=== PATIENT | female | born 1975 | race Caucasian/White ===

== ENCOUNTER 2017-10-25 18:13 | Inpatient (IN) | payer OTHER ==
[2017-10-25 18:47] VITALS: BMI 24.1
--- NOTE | 2017-10-25 20:09 | HP ---
CIWA Score - CIWA Score Nausea/Vomitin Muscle Tremors: 2 Anxiety: 3 Agitation: 3 Paroxysmal Sweats: 2 Orientation: 0-Oriented Tacttile Disturbances: 1-Very Mild Itch/Numbness Auditory Disturbances: 0-None Visual Disturbances: 0-None Headache: 0-None Present CIWA-Ar Total Score: 13 Admission [facility] [place] Chief Complaint: alcohol withdrawal symptoms Allergies/Adverse Reactions: Allergies Allergy/AdvReac Type Severity Reaction Status Date / Time naproxen [From Naprosyn] Allergy Mild Nausea Verified 10/25/17 19:24 History of Present Illness: 42 yo female with hx of nicotine, crack / cocaine, and alcohol dependence is here seeking detox, reports this is her first admission to detox. PMHX: asthma, COPD, Depression, bipolar and anxiety. Denies suicidal / homicidal ideation. Reports hx of suicide attempt 2009, with drug over dose (Buspar). Longest period of sobriety 2 years. Denies hx of seizures, reports remote hx of blackouts with last episode 8 months ago. Exam Limitations: No Limitations - Ebola screening Have you been sick,other than usual withdrawal symptoms: No - Review of Systems Constitutional: Chills, Night Sweats, Changes in sleep EENT: reports: No Symptoms Reported Respiratory: reports: Cough (seen ED for asthma), SOB with Exertion Cardiac: reports: Other (chets pain for prolong coughing was seen in the ED yesterday) GI: reports: Constipated (last BM this AM), Nausea, Poor Appetite, Poor Fluid Intake, Indigestion : reports: No Symptoms Reported Musculoskeletal: reports: Back Pain, Other (hx of back sx) Integumentary: reports: No Symptoms Reported Neuro: reports: No Symptoms reported Endocrine: reports: Increased Thirst Hematology: reports: No Symptoms Reported Psychiatric: reports: Orientated x3, Anxious Other Systems: Reviewed and Negative Patient History - Patient Medical History Hx Anemia: No Hx Asthma: Yes Hx Chronic Obstructive Pulmonary Disease (COPD): Yes Hx Cancer: No Hx Cardiac Disorders: No Hx Congestive Heart Failure: No Hx Hypertension: No Hx Hypercholesterolemia: No Hx Pacemaker: No HX Cerebrovascular Accident: No Hx Seizures: No Hx Dementia: No Hx Diabetes: No Hx Gastrointestinal Disorders: No Hx Liver Disease: No Hx Genitourinary Disorders: No Hx Sexually Transmitted Disorders: No Hx Renal Disease (ESRD): No Hx Thyroid Disease: No Hx Human Immunodeficiency Virus (HIV): No Hx Hepatitis C: No Hx Depression: Yes (non-compliant) Hx Suicide Attempt: Yes (2009, with drug over dose (Buspar)) Hx Bipolar Disorder: No Hx Schizophrenia: No - Patient Surgical History Past Surgical History: Yes Hx Appendectomy: Yes Hx Orthopedic Surgery: Yes Other Surgical History: Laminectomy L4-L5, Partial hysterectomy,Tonsillectomy Anesthesia Reaction: No - PPD History Previous Implant?: Yes Documented Results: Negative w/o proof PPD to be Administered?: No - Reproductive History Patient is a Female of Child Bearing Age (11 -55 yrs old): No - Smoking Cessation Smoking history: Current every day smoker Aproximately how many cigarettes per day: 10 Hx Chewing Tobacco Use: No Initiated information on smoking cessation: Yes 'Breaking Loose' booklet given: 10/25/17 - Substance & Tx. History Hx Alcohol Use: Yes Hx Substance Use: Yes Substance Use Type: Alcohol, Cocaine Hx Substance Use Treatment: No - Substances Abused Alcohol Route: Oral Frequency: Daily Amount used: Beer - (6) 24 oz, Rum - 1 pint Age of first use: 15 Date of Last Use: 10/25/17 Cocaine Route: Smoking Frequency: Daily Amount used: $500.00 Age of first use: 20 Date of Last Use: 10/25/17 Family Disease History - Family Disease History Family Disease History: CA: Father (, colon CA ), Mother (, CA, COPD ), Respiratory: Mother, Other: Father, Mother Admission Physical Exam BHS - Vital Signs Vital Signs: Vital Signs - 24 hr 10/25/17 18:44 Pulse Rate 73 Respiratory 18 Rate Blood Pressure 110/65 - Physical General Appearance: Yes: Disheveled, Thin, Sweating, Anxious HEENTM: Yes: EOMI, Hearing grossly Normal, Normal ENT Inspection, Normocephalic , Normal Voice, RICHA, Pharynx Normal, Tm's normal Respiratory: Yes: Chest Non-Tender, Lungs Clear, No Respiratory Distress, No Accessory Muscle Use, Wheezing Neck: Yes: Within Normal Limits Breast: Yes: Breast Exam Deferred Cardiology: Yes: Regular Rhythm, Regular Rate Abdominal: Yes: Normal Bowel Sounds, Non Tender, Flat, Soft Genitourinary: Yes: Within Normal Limits Back: Yes: Normal Inspection Musculoskeletal: Yes: full range of Motion, Gait Steady, Pelvis Stable Extremities: Yes: Normal Capillary Refill, Normal Inspection, Normal Range of Motion, Non-Tender Neurological: Yes: prize fighter II-XII NML intact, Fully Oriented, Alert, Motor Strength 5/5, Depressed Affect Integumentary: Yes: Normal Color, Warm, Moist Lymphatic: Yes: Within Normal Limits - Diagnostic (1) COPD (chronic obstructive pulmonary disease) Current Visit: Yes Status: Chronic Qualifiers: COPD type: unspecified COPD Qualified Code(s): J44.9 - Chronic obstructive pulmonary disease, unspecified (2) Wheezing Current Visit: Yes Status: Acute (3) Cocaine dependence Current Visit: Yes Status: Acute Qualifiers: Substance use status: uncomplicated Qualified Code(s): F14.20 - Cocaine dependence, uncomplicated (4) Cough Current Visit: Yes Status: Acute (5) Alcohol dependence with withdrawal Current Visit: Yes Status: Acute Cleared for Admission [facility] - Detox or Rehab [facility] Level of Care: Medically Managed Detox Regimen/Protocol: Librium S Breath Alcohol Content Breath Alcohol Content: 0 Urine Pregancy Test - Result Urine Test Results: Negative- NO Line Present Urine Drug Screen - Results Drug Screen Negative: No Urine Drug Screen Results: GALINA-Cocaine, TCA-Tricyclic Antidepress
[2017-10-25] MEDS ORDERED: LOPERAMIDE HCL 2 MG CAPSULE PO PRN (20:32)
[2017-10-25] MEDS ORDERED: MAG HYDROX/AL HYDROX/SIMETH 30 ML UNIT-DOSE CUP PO PRN (20:32)
[2017-10-25] MEDS ORDERED: MAGNESIUM CITRATE 300 ML BOTTLE PO PRN (20:32)
[2017-10-25] MEDS ORDERED: MAGNESIUM HYDROX 2400MG/30ML ORAL SUSPENSION 30 ML CUP PO PRN (20:32)
[2017-10-25] MEDS ORDERED: P-EPHED 60MG/TRIPROLIDI 2.5MG TABLET PO PRN (20:32)
[2017-10-25] MEDS ORDERED: chlordiazePOXIDE HCL 25 MG CAPSULE PO ONE (20:32)
[2017-10-25] MEDS ORDERED: ACETAMINOPHEN 325 MG TABLET (FP) PO PRN (20:32)
[2017-10-25] MEDS ORDERED: guaiFENesin/D-METHORPHAN HB 10 ML UNIT-DOSE CUPS PO PRN (20:32)
[2017-10-25] MEDS ORDERED: MENTHOL/PHENOL 1 EACH UD MM PRN (20:32)
[2017-10-25] MEDS ORDERED: chlordiazePOXIDE HCL 25 MG CAPSULE PO PRN (20:32)
[2017-10-25] MEDS: MONTELUKAST NA 10 MG TABLET PO SCH (22:22)
[2017-10-25] MEDS: ALBUTEROL SO4 2.5/IPRATROPIUM 0.5 INH SOL 3 ML VIAL.NEB. NEB PRN (22:22)
[2017-10-25] MEDS: MELATONIN 5 MG TABLETS PO PRN (22:23)
[2017-10-25] MEDS: guaiFENesin/D-METHORPHAN HB 1 EACH TAB.ER.12H PO SCH (22:23)
[2017-10-25] MEDS: THIAMINE HCL 100 MG TABLET (FP) PO SCH (22:23)
[2017-10-25] MEDS: chlordiazePOXIDE HCL 25 MG CAPSULE PO SCH (22:23)
[2017-10-25] MEDS: BACITRACIN 0.9 GM PACKET TP SCH (23:19)
[2017-10-26] MEDS: chlordiazePOXIDE HCL 25 MG CAPSULE PO SCH ×4 (05:37→22:27)
[2017-10-26] MEDS: ALBUTEROL SO4 2.5/IPRATROPIUM 0.5 INH SOL 3 ML VIAL.NEB. NEB PRN (08:27)
[2017-10-26 09:58] LABS: HEMATOCRIT 34.7 % (32.4-45.2); HEMOGLOBIN 11.6 GM/dL (10.7-15.3); MCH 30.3 pg (25.7-33.7); MCHC 33.3 g/dl (32.0-36.0); MEAN CELL VOLUME 90.8 fl (80-96); MEAN PLT VOLUME 10.5 fl (7.5-11.1); PLATELET COUNT 180 K/MM3 (134-434); RBC 3.82 M/mm3 (3.60-5.2); RDW 13.2 % (11.6-15.6); WHITE BLOOD COUNT 13.4 K/mm3 (4.0-10.0)
--- NOTE | 2017-10-26 10:40 | PN ---
S CIWA - CIWA Score Nausea/Vomitin-Mild Nausea/No Vomiting Muscle Tremors: 4-Moderate,w/Arms Extend Anxiety: 3 Agitation: 3 Paroxysmal Sweats: 1-Minimal Palms Moist Orientation: 0-Oriented Tacttile Disturbances: 0-None Auditory Disturbances: 0-None Visual Disturbances: 0-None Headache: 0-None Present CIWA-Ar Total Score: 12 BHS Progress Note (SOAP) Subjective: sweat tremor restlessness anxiety Objective: 10/26/17 10:39 Vital Signs Temperature 96.8 F L 10/26/17 09:21 Pulse Rate 78 10/26/17 09:21 Respiratory Rate 18 10/26/17 09:21 Blood Pressure 108/53 10/26/17 09:21 O2 Sat by Pulse Oximetry (%) Laboratory Last Values WBC 13.4 K/mm3 (4.0-10.0) H 10/26/17 07:00 RBC 3.82 M/mm3 (3.60-5.2) 10/26/17 07:00 Hgb 11.6 GM/dL (10.7-15.3) 10/26/17 07:00 Hct 34.7 % (32.4-45.2) 10/26/17 07:00 MCV 90.8 fl (80-96) 10/26/17 07:00 MCH 30.3 pg (25.7-33.7) 10/26/17 07:00 MCHC 33.3 g/dl (32.0-36.0) 10/26/17 07:00 RDW 13.2 % (11.6-15.6) 10/26/17 07:00 Plt Count 180 K/MM3 (134-434) 10/26/17 07:00 MPV 10.5 fl (7.5-11.1) 10/26/17 07:00 lab noted Assessment: 10/26/17 10:39 withdrawal sx asthma copd Plan: continue detox amoxilline 250 mg tid
[2017-10-26] MEDS: PRENATAL VITAMINS W/ FOLIC ACID TABLET (FP) PO SCH (10:48)
[2017-10-26] MEDS: BACITRACIN 0.9 GM PACKET TP SCH (10:48)
[2017-10-26] MEDS: guaiFENesin/D-METHORPHAN HB 1 EACH TAB.ER.12H PO SCH ×2 (10:48→22:27)
[2017-10-26] MEDS: NICOTINE 21 MG/24 HOURS TOPICAL PATCH TD SCH (10:49)
--- NOTE | 2017-10-26 11:30 | EKG ---
Test Reason : Blood Pressure : / mmHG Vent. Rate : 071 BPM Atrial Rate : 071 BPM P-R Int : 148 ms QRS Dur : 082 ms QT Int : 404 ms P-R-T Axes : 069 069 058 degrees QTc Int : 439 ms NORMAL SINUS RHYTHM NORMAL ECG Confirmed by MD MADIE, YADIEL ([id number]) on 10/26/2017 11:29:36 AM Referred By: Confirmed By:YADIEL RAMACHANDRAN MD
[2017-10-26 12:01] LABS: CALCIUM 8.6 mg/dL (8.5-10.1); CHLORIDE 108 mmol/L (98-107); POTASSIUM 4.1 mmol/L (3.5-5.1); SODIUM 140 mmol/L (136-145)
[2017-10-26 12:05] LABS: ALBUMIN 3.1 g/dl (3.4-5.0); ALK PHOS 31 U/L (45-117); ANION GAP 6 (8-16); BILIRUBIN,TOTAL 0.2 mg/dL (0.2-1.0); BLOOD UREA NITROGEN 20 mg/dL (7-18); CO2 26 mmol/L (21-32); CREATININE 0.5 mg/dL (0.55-1.02); GLUCOSE,RANDOM 84 mg/dL (74-106); SGOT/AST 7 U/L (15-37); SGPT/ALT 17 U/L (12-78); TOT PROT 5.7 g/dl (6.4-8.2)
[2017-10-26] MEDS: AMOXICILLIN 250 MG CAPSULE PO SCH ×2 (13:45→22:27)
[2017-10-26] MEDS: BUDESONIDE/FORMETEROL FUMARATE 80/4.5 mcg INHALER IH SCH ×2 (15:02→22:26)
--- NOTE | 2017-10-26 17:28 | CONSULT ---
[facility] Psychiatric Consult - Data Date of interview: 10/26/17 Admission source: [facility] Identifying data: Patient is a 42 year old single female, mother of four, unemployed, homeless, and supported by food stamps. This is patient's first admission to detox at [facility]. Pt. admitted to for alcohol and crack/ cocaine. Substance Abuse History: Smoking Cessation. Smoking history: Current every day smoker. Aproximately how many cigarettes per day: 10. Hx Chewing Tobacco Use: No. Initiated information on smoking cessation: Yes. 'Breaking Loose' booklet given: 10/25/17. - Substance & Tx. History. Hx Alcohol Use: Yes. Hx Substance Use: Yes. Substance Use Type: Alcohol, Cocaine. Hx Substance Use Treatment: No. - Substances Abused. Alcohol. Route: Oral. Frequency: Daily. Amount used: Beer - (6) 24 oz, Rum - 1 pint. Age of first use: 15. Date of Last Use: 10/25/17. Cocaine. Route: Smoking. Frequency: Daily. Amount used: $500.00. Age of first use: 20. Date of Last Use: 10/25/17 Medical History: Asthma, Laminectomy L4-L5, Partial hysterectomy,Tonsillectomy Psychiatric History: Patient reports two psychiatric hospitalizations, most recently in 2005 at [facility] in [place]. Diagnosis of bipolar disorder. Pt. denies OPD. Patient reports h/o accepting trazodone, depakote,buspar, and risperdal but states the medications were ineffective. Pt. reports nonadherence to medications. Pt. reports one suicide attempt via overdose by taking buspar after mother in 2005. Pt. reports having anxiety that can be difficult to manage. Pt. currently denies suicidal and homicidal ideation. Physical/Sexual Abuse/Trauma History: Denies. Mental Status Exam - Mental Status Exam Alert and Oriented to: Time, Place, Person Cognitive Function: Good Patient Appearance: Well Groomed Mood: Euthymic Affect: Mood Congruent Patient Behavior: Appropriate, Cooperative Speech Pattern: Clear, Appropriate Thought Process: Intact, Goal Oriented Thought Disorder: Not Present Hallucinations: Denies Suicidal Ideation: Denies Homicidal Ideation: Denies Insight/Judgement: Poor Sleep: Fair Appetite: Fair Muscle strength/Tone: Normal Gait/Station: Normal Psychiatric Findings - Problem List (Horatio 1, 2,3) (1) Alcohol dependence with withdrawal Current Visit: Yes Status: Acute (2) Cocaine dependence Current Visit: Yes Status: Acute Qualifiers: Substance use status: uncomplicated Qualified Code(s): F14.20 - Cocaine dependence, uncomplicated (3) COPD (chronic obstructive pulmonary disease) Current Visit: Yes Status: Chronic Qualifiers: COPD type: unspecified COPD Qualified Code(s): J44.9 - Chronic obstructive pulmonary disease, unspecified (4) Substance-induced anxiety disorder Current Visit: Yes Status: Acute - Initial Treatment Plan Initial Treatment Plan: Psychoeducation provided. Detoxification in progress. Observation.
[2017-10-26] MEDS: MONTELUKAST NA 10 MG TABLET PO SCH (22:27)
[2017-10-26] MEDS: THIAMINE HCL 100 MG TABLET (FP) PO SCH (22:27)
[2017-10-27] MEDS: AMOXICILLIN 250 MG CAPSULE PO SCH ×2 (05:38→14:17)
[2017-10-27] MEDS: chlordiazePOXIDE HCL 25 MG CAPSULE PO SCH ×3 (05:38→17:28)
[2017-10-27] MEDS ORDERED: IBUPROFEN 400 MG TABLET (FP) PO PRN (07:21)
--- NOTE | 2017-10-27 07:21 | PN ---
[facility] Progress Note Note: SEEN FOR CHRONIC COUGH WITH C/O CHEST PAIN WHEN COUGHING. REPORTS COUGH DRY/ HACKING. CLIENT REPORTS SX'S HAVE BEEN PRESENT FOR OVER A MONTH. CXR DONE 2017 NEGATIVE FOR PATHOLOGY. CLIENT IS AN ASTHMATIC AND COPD. STATES WAS NOT TAKING APPROPRIATE INHALERS BUT THAT HAS SINCE BEEN ORDERED. Vital Signs - 24 hr 10/26/17 10/26/17 10/26/17 08:04 08:05 09:21 Temperature 97.7 F 96.8 F L Pulse Rate 67 78 Respiratory 18 16 18 Rate Blood Pressure 111/66 108/53 10/26/17 10/26/17 10/26/17 14:23 18:21 22:14 Temperature 97.7 F 98.2 F 98.1 F Pulse Rate 87 86 86 Respiratory 18 16 16 Rate Blood Pressure 101/41 108/48 115/63 10/27/17 10/27/17 00:30 03:30 Temperature Pulse Rate Respiratory 18 18 Rate Blood Pressure Laboratory Tests 10/26/17 10/26/17 10/26/17 07:00 07:00 07:00 WBC 13.4 H RBC 3.82 Hgb 11.6 Hct 34.7 MCV 90.8 MCH 30.3 MCHC 33.3 RDW 13.2 Plt Count 180 MPV 10.5 Sodium 140 Potassium 4.1 Chloride 108 H Carbon Dioxide 26 Anion Gap 6 L BUN 20 H Creatinine 0.5 L Creat Clearance w eGFR > 60 Random Glucose 84 Calcium 8.6 Total Bilirubin 0.2 AST 7 L ALT 17 Alkaline Phosphatase 31 L Total Protein 5.7 L Albumin 3.1 L RPR Titer Nonreactive HIV 1&2 Antibody Screen HIV P24 Antigen 10/26/17 08:30 WBC RBC Hgb Hct MCV MCH MCHC RDW Plt Count MPV Sodium Potassium Chloride Carbon Dioxide Anion Gap BUN Creatinine Creat Clearance w eGFR Random Glucose Calcium Total Bilirubin AST ALT Alkaline Phosphatase Total Protein Albumin RPR Titer HIV 1&2 Antibody Screen Negative HIV P24 Antigen Negative 0- LUNGS CTAB DECREASE BREATH SOUNDS AT BASES. NO WHEEZING, RONCHI,NOTED- O2 SAT 99% RA LABS NOTED WBC ELEVATED CLIENT IS ON AMOXICILLIN WILL CONT TO MONITOR IN LIGHT OF NEG CXR P C/W CURRENT MGMT ROBITUSSIN/ AND MOTRIN FOR PAIN AND COUGH D/W CLIENT ABOUT ALLERGY. STATES TAKES MOTRIN AT HOME W/O ANY ISSUES PITCHER OF WATER AT BEDSIDE FOR INCREASE PO HYDRATION
[2017-10-27] MEDS: guaiFENesin/D-METHORPHAN HB 10 ML UNIT-DOSE CUPS PO PRN (09:13)
--- NOTE | 2017-10-27 09:53 | PN ---
S CIWA - CIWA Score Nausea/Vomitin-Mild Nausea/No Vomiting Muscle Tremors: 3 Anxiety: 3 Agitation: 2 Paroxysmal Sweats: 1-Minimal Palms Moist Orientation: 0-Oriented Tacttile Disturbances: 1-Very Mild Itch/Numbness Auditory Disturbances: 0-None Visual Disturbances: 0-None Headache: 1-Very Mild CIWA-Ar Total Score: 12 BHS Progress Note (SOAP) Subjective: sweat tremor restlessness irritable chronic cough Objective: 10/27/17 09:50 Vital Signs Temperature 95.5 F L 10/27/17 09:24 Pulse Rate 94 H 10/27/17 09:24 Respiratory Rate 20 10/27/17 09:24 Blood Pressure 109/61 10/27/17 09:24 O2 Sat by Pulse Oximetry (%) Laboratory Last Values WBC 13.4 K/mm3 (4.0-10.0) H 10/26/17 07:00 RBC 3.82 M/mm3 (3.60-5.2) 10/26/17 07:00 Hgb 11.6 GM/dL (10.7-15.3) 10/26/17 07:00 Hct 34.7 % (32.4-45.2) 10/26/17 07:00 MCV 90.8 fl (80-96) 10/26/17 07:00 MCH 30.3 pg (25.7-33.7) 10/26/17 07:00 MCHC 33.3 g/dl (32.0-36.0) 10/26/17 07:00 RDW 13.2 % (11.6-15.6) 10/26/17 07:00 Plt Count 180 K/MM3 (134-434) 10/26/17 07:00 MPV 10.5 fl (7.5-11.1) 10/26/17 07:00 Sodium 140 mmol/L (136-145) 10/26/17 07:00 Potassium 4.1 mmol/L (3.5-5.1) 10/26/17 07:00 Chloride 108 mmol/L (98-107) H 10/26/17 07:00 Carbon Dioxide 26 mmol/L (21-32) 10/26/17 07:00 Anion Gap 6 (8-16) L 10/26/17 07:00 BUN 20 mg/dL (7-18) H 10/26/17 07:00 Creatinine 0.5 mg/dL (0.55-1.02) L 10/26/17 07:00 Creat Clearance w eGFR > 60 (>60) 10/26/17 07:00 Random Glucose 84 mg/dL (74-106) 10/26/17 07:00 Calcium 8.6 mg/dL (8.5-10.1) 10/26/17 07:00 Total Bilirubin 0.2 mg/dL (0.2-1.0) 10/26/17 07:00 AST 7 U/L (15-37) L 10/26/17 07:00 ALT 17 U/L (12-78) 10/26/17 07:00 Alkaline Phosphatase 31 U/L (45-117) L 10/26/17 07:00 Total Protein 5.7 g/dl (6.4-8.2) L 10/26/17 07:00 Albumin 3.1 g/dl (3.4-5.0) L 10/26/17 07:00 RPR Titer Nonreactive (NONREACTIVE) 10/26/17 07:00 HIV 1&2 Antibody Screen Negative 10/26/17 08:30 HIV P24 Antigen Negative 10/26/17 08:30 lab noted Assessment: 10/27/17 09:51 withdrawal sx chronic bronchitis Plan: continue detox seen by provider last night for coughing continue amoxicillin oral hydration cigarette cessation discuss healthy life style with proper nutrition
[2017-10-27] MEDS: BUDESONIDE/FORMETEROL FUMARATE 80/4.5 mcg INHALER IH SCH ×2 (10:20→22:18)
[2017-10-27] MEDS: BACITRACIN 0.9 GM PACKET TP SCH (10:20)
[2017-10-27] MEDS: PRENATAL VITAMINS W/ FOLIC ACID TABLET (FP) PO SCH (10:20)
[2017-10-27] MEDS: NICOTINE 21 MG/24 HOURS TOPICAL PATCH TD SCH (10:22)
[2017-10-27] MEDS: NICOTINE POLACRILEX 2 MG GUM BC PRN ×2 (12:20→22:22)
[2017-10-27] MEDS: hydrOXYzine PAMOATE 50 MG CAPSULE (FP) PO PRN ×2 (12:22→19:35)
[2017-10-27 14:33] LABS: URINE APPEARANCE CLEAR; URINE BILIRUBIN NEGATIVE (<2.0 mg/dL); URINE COLOR STRAW; URINE GLUCOSE (UA) NEGATIVE (NEGATIVE); URINE KETONE NEGATIVE (NEGATIVE); URINE LEUK ESTERASE NEGATIVE (NEGATIVE); URINE NITRITE NEGATIVE (NEGATIVE); URINE PROTEIN NEGATIVE (NEGATIVE); URINE UROBILINOGEN NEGATIVE mg/dL (0.2-1.0)
[2017-10-27] MEDS: ALBUTEROL SO4 2.5/IPRATROPIUM 0.5 INH SOL 3 ML VIAL.NEB. NEB PRN (15:30)
--- NOTE | 2017-10-27 18:19 | PN ---
Psychiatric Progress Note Vital Signs: Vital Signs Period Temp Pulse Resp BP Sys/Denis Pulse Ox Last 24 Hr 95.5 F-98.2 F 69-94 16-20 102-116/48-73 Date of Session: 10/27/17 Chief Complaint:: " I have anxiety." HPI: Pt. admitted to N for alcohol and crack/cocaine. ROS: Asthma, Laminectomy L4-L5, Partial hysterectomy,Tonsillectomy Current Medications: Active Medications Generic Name Dose Route Start Last Admin Trade Name Freq PRN Reason Stop Dose Admin Acetaminophen 650 mg 10/25/17 20:32 Tylenol - PO Q4H PRN FEVER Al Hydroxide/Mg Hydroxide 30 ml 10/25/17 20:32 Mylanta Oral Suspension - PO Q6H PRN DYSPEPSIA Albuterol/Ipratropium 1 amp 10/25/17 20:17 10/27/17 15:30 Duoneb - NEB 1 amp Q4H PRN Administration SHORTNESS OF BREATH Bacitracin 0.9 gm 10/25/17 20:30 10/27/17 10:20 Bacitracin - TP 0.9 gm DAILY JEANNETTE Administration Budesonide/Formoterol Fumarate 2 puff 10/26/17 14:00 10/27/17 10:20 Symbicort 80/4.5mcg - IH 2 puff BID JEANNETTE Administration Chlordiazepoxide HCl 15 mg 10/27/17 23:00 Librium - PO 10/28/17 17:01 [id number] JEANNETTE Chlordiazepoxide HCl 25 mg 10/25/17 20:32 Librium - PO 10/28/17 20:31 Q4H PRN WITHDRAWAL(CONT SUBST) Chlordiazepoxide HCl 10 mg 10/28/17 23:00 Librium - PO 10/29/17 17:01 [id number] JEANNETTE Eucalyptus/Menthol/Phenol/Sorbitol 1 each 10/25/17 20:32 Cepastat Lozenge - MM Q4H PRN SORE THROAT Guaifenesin 10 ml 10/27/17 07:22 10/27/17 09:13 Robitussin Dm - PO 10 ml Q4H PRN Administration COUGH Hydroxyzine Pamoate 50 mg 10/25/17 20:32 10/27/17 12:22 Vistaril - PO 50 mg Q4H PRN Administration AGITATION Ibuprofen 400 mg 10/27/17 07:21 Motrin - PO Q6H PRN FEVER Loperamide HCl 4 mg 10/25/17 20:32 Imodium - PO Q6H PRN DIARRHEA Magnesium Citrate 300 ml 10/25/17 20:32 Citroma - PO Q48H PRN CONSTIPATION Magnesium Hydroxide 30 ml 10/25/17 20:32 Milk Of Magnesia - PO DAILY PRN CONSTIPATION Melatonin 5 mg 10/25/17 22:00 10/25/17 22:23 Melatonin PO 5 mg HS PRN Administration INSOMNIA Montelukast Sodium 10 mg 10/25/17 22:00 10/26/17 22:27 Singulair - PO 10 mg HS JEANNETTE Administration Nicotine 21 mg 10/26/17 10:00 10/27/17 10:22 Nicoderm Patch - TD 21 mg DAILY JEANNETTE Administration Nicotine Polacrilex 2 mg 10/25/17 20:32 10/27/17 12:20 Nicorette Gum - BC 2 mg Q2H PRN Administration NICOTINE REPLACEMENT RX Multivit/Folic Acid/Iron 1 tab 10/26/17 10:00 10/27/17 10:20 Vitamins (Sjr) - PO 1 tab DAILY JEANNETTE Administration Pseudoephedrine/Triprolidine 1 combo 10/25/17 20:32 Actifed - PO TID PRN NASAL CONGESTION Thiamine HCl 100 mg 10/25/17 22:00 10/26/17 22:27 Vitamin B1 - PO 100 mg HS JEANNETTE Administration Medication(s) Change(s): No. Current Side Effect: No Lab tests ordered: No Lab tests reviewed: Yes Provider note:: Distance Education Director met with patient requesting psychiatric follow up. As per nursing staff, patient was requesting risperdal. Pt. seen by creative writer yesterday and was informed that risperdal was ineffective and she was not interested in restarting medication. Upon reconsultation, patient reported increase anxiety. Pt. educated on the uses, benefits and side effects of risperdal. Pt. requesting a medication specifically for anxiety and was informed that vistaril 50mg is ordered and was encouraged to accept medication. Pt. satisifed and receptive to feedback. Total face to face time:: 15 Mental Status Exam - Mental Status Exam Alert and Oriented to: Time, Place, Person Cognitive Function: Good Patient Appearance: Well Groomed Mood: Euthymic Affect: Mood Congruent Patient Behavior: Cooperative Speech Pattern: Appropriate Voice Loudness: Moderately Soft/Quiet Thought Process: Intact, Goal Oriented Thought Disorder: Not Present Hallucinations: Denies Suicidal Ideation: Denies Homicidal Ideation: Denies Insight/Judgement: Poor Sleep: Fair Appetite: Fair Muscle strength/Tone: Normal Gait/Station: Normal Psychiatric Treatment Plan - Problem List (1) Alcohol dependence with withdrawal Current Visit: Yes (2) Cocaine dependence Current Visit: Yes Qualifiers: Substance use status: uncomplicated Qualified Code(s): F14.20 - Cocaine dependence, uncomplicated (3) COPD (chronic obstructive pulmonary disease) Current Visit: Yes Qualifiers: COPD type: unspecified COPD Qualified Code(s): J44.9 - Chronic obstructive pulmonary disease, unspecified (4) Substance-induced anxiety disorder Current Visit: Yes
[2017-10-27] MEDS: MONTELUKAST NA 10 MG TABLET PO SCH (22:18)
[2017-10-27] MEDS: chlordiazePOXIDE 5 MG CAPSULE PO SCH (22:18)
[2017-10-27] MEDS: MELATONIN 5 MG TABLETS PO PRN (22:18)
[2017-10-27] MEDS: THIAMINE HCL 100 MG TABLET (FP) PO SCH (22:18)
[2017-10-28] MEDS: chlordiazePOXIDE 5 MG CAPSULE PO SCH ×3 (06:19→16:59)
[2017-10-28] MEDS: guaiFENesin/D-METHORPHAN HB 10 ML UNIT-DOSE CUPS PO PRN ×2 (07:47→14:17)
[2017-10-28] MEDS: PRENATAL VITAMINS W/ FOLIC ACID TABLET (FP) PO SCH (10:56)
[2017-10-28] MEDS: BACITRACIN 0.9 GM PACKET TP SCH (10:56)
[2017-10-28] MEDS: BUDESONIDE/FORMETEROL FUMARATE 80/4.5 mcg INHALER IH SCH ×2 (10:56→22:19)
[2017-10-28] MEDS: NICOTINE 21 MG/24 HOURS TOPICAL PATCH TD SCH (10:57)
--- NOTE | 2017-10-28 11:41 | PN ---
S Progress Note (SOAP) Subjective: feeling better no tremor less sweat no gi distress sleep better at night Objective: 10/28/17 11:40 Vital Signs Temperature 97.7 F 10/28/17 10:27 Pulse Rate 84 10/28/17 10:27 Respiratory Rate 18 10/28/17 10:27 Blood Pressure 108/50 10/28/17 10:27 O2 Sat by Pulse Oximetry (%) Laboratory Last Values WBC 13.4 K/mm3 (4.0-10.0) H 10/26/17 07:00 RBC 3.82 M/mm3 (3.60-5.2) 10/26/17 07:00 Hgb 11.6 GM/dL (10.7-15.3) 10/26/17 07:00 Hct 34.7 % (32.4-45.2) 10/26/17 07:00 MCV 90.8 fl (80-96) 10/26/17 07:00 MCH 30.3 pg (25.7-33.7) 10/26/17 07:00 MCHC 33.3 g/dl (32.0-36.0) 10/26/17 07:00 RDW 13.2 % (11.6-15.6) 10/26/17 07:00 Plt Count 180 K/MM3 (134-434) 10/26/17 07:00 MPV 10.5 fl (7.5-11.1) 10/26/17 07:00 Sodium 140 mmol/L (136-145) 10/26/17 07:00 Potassium 4.1 mmol/L (3.5-5.1) 10/26/17 07:00 Chloride 108 mmol/L (98-107) H 10/26/17 07:00 Carbon Dioxide 26 mmol/L (21-32) 10/26/17 07:00 Anion Gap 6 (8-16) L 10/26/17 07:00 BUN 20 mg/dL (7-18) H 10/26/17 07:00 Creatinine 0.5 mg/dL (0.55-1.02) L 10/26/17 07:00 Creat Clearance w eGFR > 60 (>60) 10/26/17 07:00 Random Glucose 84 mg/dL (74-106) 10/26/17 07:00 Calcium 8.6 mg/dL (8.5-10.1) 10/26/17 07:00 Total Bilirubin 0.2 mg/dL (0.2-1.0) 10/26/17 07:00 AST 7 U/L (15-37) L 10/26/17 07:00 ALT 17 U/L (12-78) 10/26/17 07:00 Alkaline Phosphatase 31 U/L (45-117) L 10/26/17 07:00 Total Protein 5.7 g/dl (6.4-8.2) L 10/26/17 07:00 Albumin 3.1 g/dl (3.4-5.0) L 10/26/17 07:00 Urine Color Straw 10/27/17 11:00 Urine Appearance Clear 10/27/17 11:00 Urine pH 5.0 (5.0-8.0) 10/27/17 11:00 Ur Specific [place] 1.017 (1.001-1.035) 10/27/17 11:00 Urine Protein Negative (NEGATIVE) 10/27/17 11:00 Urine Glucose (UA) Negative (NEGATIVE) 10/27/17 11:00 Urine Ketones Negative (NEGATIVE) 10/27/17 11:00 Urine Blood Negative (NEGATIVE) 10/27/17 11:00 Urine Nitrite Negative (NEGATIVE) 10/27/17 11:00 Urine Bilirubin Negative (<2.0 mg/dL) 10/27/17 11:00 Urine Urobilinogen Negative mg/dL (0.2-1.0) 10/27/17 11:00 Ur Leukocyte Esterase Negative (NEGATIVE) 10/27/17 11:00 RPR Titer Nonreactive (NONREACTIVE) 10/26/17 07:00 HIV 1&2 Antibody Screen Negative 10/26/17 08:30 HIV P24 Antigen Negative 10/26/17 08:30 lab noted Assessment: 10/28/17 11:41 mild withdrawal sx Plan: medically supervised detox
[2017-10-28] MEDS: NICOTINE POLACRILEX 2 MG GUM BC PRN (15:37)
[2017-10-28] MEDS: hydrOXYzine PAMOATE 50 MG CAPSULE (FP) PO PRN ×2 (17:01→23:23)
[2017-10-28] MEDS: MONTELUKAST NA 10 MG TABLET PO SCH (22:19)
[2017-10-28] MEDS: chlordiazePOXIDE HCL 10 MG CAPSULE PO SCH (22:19)
[2017-10-28] MEDS: THIAMINE HCL 100 MG TABLET (FP) PO SCH (22:20)
[2017-10-28] MEDS: MELATONIN 5 MG TABLETS PO PRN (22:21)
[2017-10-29] MEDS: chlordiazePOXIDE HCL 10 MG CAPSULE PO SCH (05:49)
[2017-10-29] MEDS: hydrOXYzine PAMOATE 50 MG CAPSULE (FP) PO PRN (05:51)
[2017-10-29 06:24] VITALS: BP 114/63; PULSE 80; TEMP 97.9
== END 2017-10-29 06:26 | disposition home or self-care (01) | DRG 774 ==
LOC: YASAS 18:13 → Y6N 20:38
PROVIDERS: ADMIT Surgery; ATTEND Surgery
PROC: HZ2ZZZZ Detoxification Services for Substance Abuse Treatment (ICD-10-PCS; principal; 2017-10-25)
DX: F10.230 Alcohol dependence with withdrawal, uncomplicated (principal); F14.20 Cocaine dependence, uncomplicated; F19.24 Other psychoactive substance dependence with psychoactive substance-induced mood disorder; J45.909 Unspecified asthma, uncomplicated; J44.9 Chronic obstructive pulmonary disease, unspecified; R06.02 Shortness of breath; R06.2 Wheezing; Z88.8 Allergy status to other drugs, medicaments and biological substances; Z91.5 Personal history of self-harm; Z59.0 Homelessness
CPT/HCPCS: 36415; 71046-TC-FY; 80053; 81003; 85027; 86593; 87389; 93005; 93010; 94640; J7620

== ENCOUNTER 2017-11-08 14:15 | Inpatient (IN) | payer OTHER ==
[2017-11-08 15:08] VITALS: BMI 24.3
--- NOTE | 2017-11-08 17:59 | HP ---
[facility] Chief Complaint: crack / cocaine and alcohol rehab Allergies/Adverse Reactions: Allergies Allergy/AdvReac Type Severity Reaction Status Date / Time naproxen [From Naprosyn] Allergy Mild Nausea Verified 11/08/17 16:42 History of Present Illness: 42 yo female with hx of nicotine, crack / cocaine, and alcohol dependence is here seeking rehab. Reports recently started using heroin upon her last discharge from detox at [facility] 10/25/17 - 10/29/17, utox positive for Benzo and GALINA. PMHX: asthma, COPD, Depression, bipolar and anxiety. Denies suicidal / homicidal ideation. Reports hx of suicide attempt 2009, with drug over dose ( Buspar). Longest period of sobriety 2 years. Denies hx of seizures, reports remote hx of blackouts with last episode 8 months ago. Exam Limitations: No Limitations - Ebola screening Have you traveled outside of the country in the last 21 days: No Have you had contact with anyone from an Ebola affected area: No Have you been sick,other than usual withdrawal symptoms: No Do you have a fever: No - Review of Systems Constitutional: Loss of Appetite, Changes in sleep EENT: reports: No Symptoms Reported Respiratory: reports: See HPI, Cough (chronic), SOB with Exertion Cardiac: reports: Other (reports chronic chest pain secondary to anxiety) GI: reports: Diarrhea : reports: No Symptoms Reported Musculoskeletal: reports: Back Pain, Joint Pain Integumentary: reports: Pruritus Neuro: reports: No Symptoms reported Endocrine: reports: No Symptoms Reported Hematology: reports: No Symptoms Reported Psychiatric: reports: Orientated x3, Anxious Other Systems: Reviewed and Negative Patient History - Patient Medical History Hx Anemia: No Hx Asthma: Yes Hx Chronic Obstructive Pulmonary Disease (COPD): Yes Hx Cancer: No Hx Cardiac Disorders: No Hx Congestive Heart Failure: No Hx Hypertension: No Hx Hypercholesterolemia: No Hx Pacemaker: No HX Cerebrovascular Accident: No Hx Seizures: No Hx Dementia: No Hx Diabetes: No Hx Gastrointestinal Disorders: No Hx Liver Disease: No Hx Genitourinary Disorders: No Hx Sexually Transmitted Disorders: No Hx Renal Disease (ESRD): No Hx Thyroid Disease: No Hx Human Immunodeficiency Virus (HIV): No Hx Hepatitis C: No Hx Depression: Yes (non-compliant) Hx Suicide Attempt: Yes (2009, with drug over dose (Buspar)) Hx Bipolar Disorder: No Hx Schizophrenia: No - Patient Surgical History Past Surgical History: Yes Hx Appendectomy: Yes Hx Orthopedic Surgery: Yes Other Surgical History: Laminectomy L4-L5, Partial hysterectomy,Tonsillectomy Anesthesia Reaction: No - PPD History Previous Implant?: No Documented Results: Negative w/proof Implanted On Prior [facility] Admission?: No Date: 10/27/17 PPD to be Administered?: Yes - Reproductive History Patient is a Female of Child Bearing Age (11 -55 yrs old): Yes (post menopausal ) Patient : No - Smoking Cessation Smoking history: Current every day smoker Aproximately how many cigarettes per day: 10 Hx Chewing Tobacco Use: No Initiated information on smoking cessation: Yes 'Breaking Loose' booklet given: 11/08/17 - Substance & Tx. History Hx Alcohol Use: Yes Hx Substance Use: Yes Substance Use Type: Alcohol, Cocaine Hx Substance Use Treatment: Yes ([facility] 10/25/17 - 10/29/17.) - Substances Abused Heroin Route: Inhalation Frequency: 3-6 times per week Amount used: 4 BAGS Age of first use: 42 Date of Last Use: 11/06/17 Crack Route: Smoking Frequency: Daily Amount used: $200-300 Age of first use: 42 Date of Last Use: 11/07/17 Alcohol Route: Oral Frequency: Daily Amount used: 4 40 OZ BEERS Age of first use: 19 Date of Last Use: 10/25/17 Family Disease History - Family Disease History Family Disease History: CA: Father (, colon CA ), Mother (, CA, COPD ), Respiratory: Mother, Other: Father, Mother [facility] Vital Signs: Vital Signs - 24 hr 11/08/17 15:02 Temperature 97.5 F L Pulse Rate 76 Respiratory 18 Rate Blood Pressure 135/80 - Physical General Appearance: Yes: Disheveled, Thin, Anxious HEENTM: Yes: EOMI, Hearing grossly Normal, Normal ENT Inspection, Normocephalic , Normal Voice, RICHA, Pharynx Normal, Tm's normal Respiratory: Yes: Chest Non-Tender, Lungs Clear, Normal Breath Sounds, No Respiratory Distress, No Accessory Muscle Use, Wheezing Neck: Yes: Within Normal Limits Breast: Yes: Breast Exam Deferred Cardiology: Yes: Regular Rhythm, Regular Rate Abdominal: Yes: Normal Bowel Sounds, Non Tender, Flat, Soft Genitourinary: Yes: Within Normal Limits Back: Yes: Normal Inspection Musculoskeletal: Yes: full range of Motion, Gait Steady, Pelvis Stable Extremities: Yes: Normal Capillary Refill, Normal Inspection, Normal Range of Motion, Non-Tender Neurological: Yes: cottage master II-XII NML intact, Fully Oriented, Alert, Motor Strength 5/5, Depressed Affect Integumentary: Yes: Normal Color, Warm, Moist Lymphatic: Yes: Within Normal Limits - Diagnostic (1) Alcohol dependence Current Visit: Yes Status: Acute Qualifiers: Substance use status: uncomplicated Qualified Code(s): F10.20 - Alcohol dependence, uncomplicated (2) Cocaine dependence Current Visit: Yes Status: Acute Qualifiers: Substance use status: uncomplicated Qualified Code(s): F14.20 - Cocaine dependence, uncomplicated (3) Cough Current Visit: Yes Status: Chronic (4) Wheezing Current Visit: Yes Status: Acute (5) COPD (chronic obstructive pulmonary disease) Current Visit: Yes Status: Chronic Qualifiers: COPD type: unspecified COPD Qualified Code(s): J44.9 - Chronic obstructive pulmonary disease, unspecified BHS Breath Alcohol Content Breath Alcohol Content: 0 Urine Pregancy Test - Result Urine Test Results: Negative- NO Line Present Urine Drug Screen - Results Drug Screen Negative: No Urine Drug Screen Results: GALINA-Cocaine, BZO-Benzodiazepines Inpatient Rehab Admission - Initial Determination Are CD services needed?: Yes Free of communicable disease: Yes Not in need of hospitalization: Yes - Rehab Admission Criteria Previous failed treatment: Yes Poor recovery environment: Yes Comorbidities: Yes Lacks judgement: Yes Patient is meeting Inpatient Rehab admission criteria:: Yes
[2017-11-08] MEDS ORDERED: MAGNESIUM HYDROX 2400MG/30ML ORAL SUSPENSION 30 ML CUP PO PRN (18:07)
[2017-11-08] MEDS ORDERED: ACETAMINOPHEN 325 MG TABLET (FP) PO PRN (18:07)
[2017-11-08] MEDS ORDERED: LOPERAMIDE HCL 2 MG CAPSULE PO PRN (18:07)
[2017-11-08] MEDS ORDERED: MENTHOL/PHENOL 1 EACH UD MM PRN (18:07)
[2017-11-08] MEDS ORDERED: P-EPHED 60MG/TRIPROLIDI 2.5MG TABLET PO PRN (18:07)
[2017-11-08] MEDS ORDERED: MAGNESIUM CITRATE 300 ML BOTTLE PO PRN (18:07)
[2017-11-08] MEDS ORDERED: NICOTINE POLACRILEX 2 MG GUM BC PRN (18:07)
[2017-11-08] MEDS: guaiFENesin/D-METHORPHAN HB 10 ML UNIT-DOSE CUPS PO PRN (20:11)
[2017-11-08] MEDS: hydrOXYzine PAMOATE 50 MG CAPSULE (FP) PO PRN (22:19)
[2017-11-08] MEDS: THIAMINE HCL 100 MG TABLET (FP) PO SCH (22:19)
[2017-11-08] MEDS: BUDESONIDE/FORMETEROL FUMARATE 160/4.5 mcg INHALER IH SCH (22:19)
[2017-11-08] MEDS: risperiDONE 1 MG TABLET (FP) PO SCH (22:21)
[2017-11-08] MEDS: MELATONIN 5 MG TABLETS PO PRN (22:21)
[2017-11-08] MEDS: ALBUTEROL SO4 8 GM HFA INHALER IH SCH (22:22)
[2017-11-09] MEDS: ALBUTEROL SO4 8 GM HFA INHALER IH SCH ×4 (02:15→15:15)
[2017-11-09] MEDS ORDERED: PT OWN MED DRAWER 7, Y5N ONE ×2 (06:11→16:00)
[2017-11-09] MEDS: NICOTINE 14 MG/24 HOURS TOPICAL PATCH TD SCH (10:15)
[2017-11-09] MEDS: BUDESONIDE/FORMETEROL FUMARATE 160/4.5 mcg INHALER IH SCH ×2 (10:15→22:08)
[2017-11-09] MEDS: PRENATAL VITAMINS W/ FOLIC ACID TABLET (FP) PO SCH (10:15)
[2017-11-09] MEDS: hydrOXYzine PAMOATE 50 MG CAPSULE (FP) PO PRN ×2 (10:17→22:07)
[2017-11-09] MEDS: guaiFENesin/D-METHORPHAN HB 10 ML UNIT-DOSE CUPS PO PRN ×2 (10:18→22:09)
[2017-11-09 10:46] LABS: URINE APPEARANCE CLEAR; URINE BILIRUBIN NEGATIVE (<2.0 mg/dL); URINE COLOR STRAW; URINE GLUCOSE (UA) NEGATIVE (NEGATIVE); URINE KETONE NEGATIVE (NEGATIVE); URINE LEUK ESTERASE NEGATIVE (NEGATIVE); URINE NITRITE NEGATIVE (NEGATIVE); URINE PROTEIN NEGATIVE (NEGATIVE); URINE UROBILINOGEN NEGATIVE mg/dL (0.2-1.0)
--- NOTE | 2017-11-09 12:32 | PN ---
[facility] Progress Note Note: patient complained of chest pain Vital Signs Temperature 97.2 F L 11/09/17 10:45 Pulse Rate 78 11/09/17 10:45 Respiratory Rate 18 11/09/17 10:45 Blood Pressure 106/72 11/09/17 10:45 O2 Sat by Pulse Oximetry (%) 99 11/09/17 10:45 ekg nsr,normal ecg qt/qtc 416/449 not in any distress tylenol 650 mgs po prn for pain q 6 hrs close monitoring
[2017-11-09] MEDS ORDERED: ALBUTEROL SO4 8 GM HFA INHALER IH PRN (14:28)
--- NOTE | 2017-11-09 14:32 | PN ---
S Progress Note Note: Patient with hx of chronic nicotine use and chronic cough 2+ months secondary to COPD, patient c/o of chest pain non- cardiac origin d/t frequent coughing, chest x-ray 10/26/17 negative of pneumonia or abnormalities. Denies vertigo, paresthesia, or SOB at this time. Vital Signs Temperature 97.2 F L 11/09/17 10:45 Pulse Rate 78 11/09/17 10:45 Respiratory Rate 18 11/09/17 10:45 Blood Pressure 106/72 11/09/17 10:45 O2 Sat by Pulse Oximetry (%) 99 11/09/17 10:45 A/P Patient AOx3 no distress + mild wheezing b/t no JVD no edema skin intact Full ROM ambulating in the unit EKG: NSR - Cough secondary to COPD - musculoskeletal chest pain secondary to chronic cough Plan: predisone 40mg QD x 4 days DUO NEB PRN Ventolin PRN Flonase QD in AM Montelukast 10 mg qHS Tylenol 650 mg PRN for pain increase fluids continue to monitor
[2017-11-09] MEDS: predniSONE 20 MG TABLET (UD) PO SCH (14:40)
[2017-11-09] MEDS: ALBUTEROL SO4 2.5/IPRATROPIUM 0.5 INH SOL 3 ML VIAL.NEB. NEB PRN (14:41)
[2017-11-09] MEDS: FLUTICASONE PROP 0.05% 16 GM NASAL SPRAY NS SCH (15:55)
--- NOTE | 2017-11-09 17:04 | EKG ---
Test Reason : Blood Pressure : / mmHG Vent. Rate : 070 BPM Atrial Rate : 070 BPM P-R Int : 144 ms QRS Dur : 080 ms QT Int : 416 ms P-R-T Axes : 070 076 068 degrees QTc Int : 449 ms NORMAL SINUS RHYTHM NORMAL ECG WHEN COMPARED WITH ECG OF 08-NOV-2017 18:51, NO SIGNIFICANT CHANGE WAS FOUND Confirmed by MD Yates Edward ([id number]) on 11/09/2017 5:04:10 PM Referred By: Confirmed By:Jeremie Yates MD
--- NOTE | 2017-11-09 17:07 | EKG ---
Test Reason : Blood Pressure : / mmHG Vent. Rate : 074 BPM Atrial Rate : 074 BPM P-R Int : 144 ms QRS Dur : 080 ms QT Int : 410 ms P-R-T Axes : 070 074 063 degrees QTc Int : 455 ms NORMAL SINUS RHYTHM NORMAL ECG WHEN COMPARED WITH ECG OF 25-OCT-2017 21:56, NO SIGNIFICANT CHANGE WAS FOUND Confirmed by MD Yates Edward ([id number]) on 11/09/2017 5:06:36 PM Referred By: Confirmed By:Jeremie Yates MD
[2017-11-09] MEDS: THIAMINE HCL 100 MG TABLET (FP) PO SCH (22:07)
[2017-11-09] MEDS: MELATONIN 5 MG TABLETS PO PRN (22:07)
[2017-11-09] MEDS: risperiDONE 1 MG TABLET (FP) PO SCH (22:07)
[2017-11-09] MEDS: MONTELUKAST NA 10 MG TABLET PO SCH (22:09)
[2017-11-10] MEDS: ALBUTEROL SO4 2.5/IPRATROPIUM 0.5 INH SOL 3 ML VIAL.NEB. NEB PRN (09:17)
[2017-11-10] MEDS: predniSONE 20 MG TABLET (UD) PO SCH (09:28)
[2017-11-10] MEDS: BUDESONIDE/FORMETEROL FUMARATE 160/4.5 mcg INHALER IH SCH ×2 (09:28→21:14)
[2017-11-10] MEDS: PRENATAL VITAMINS W/ FOLIC ACID TABLET (FP) PO SCH (09:28)
[2017-11-10] MEDS: NICOTINE 14 MG/24 HOURS TOPICAL PATCH TD SCH (09:28)
[2017-11-10] MEDS: hydrOXYzine PAMOATE 50 MG CAPSULE (FP) PO PRN ×2 (09:32→19:22)
--- NOTE | 2017-11-10 09:40 | HP ---
Psychiatrist Admission - Data Date of interview: 11/10/17 Admission source: [address] [place] [address] Identifying data: This is the first admission to [address] [place] [address] for this 42 years old single caucasiian mother of 4 (youngest 13 yo son adopted).patient is homeless,supported by [place]. Medical History: Significant for BA,COPD.psychiatric problems since 2005 when her mother .patient was admitted to [facility] in [place] after DOD(bunch of of Flexeryl). She was dx with PTSD,Bipolar disorder.She reports another admission in July 2017 to [facility] due to DOD under influence of drugs.Patient reports poor compliance with medications.She has no psychiatric follow up for a few years.She reports anxiety,depression,mood instability and is willing to start medications. Psychiatric History: see in medical history Vital Signs: Vital Signs - 24 hr 11/09/17 11/10/17 11/10/17 10:45 00:30 03:30 Temperature 97.2 F L Pulse Rate 78 Respiratory 18 18 18 Rate Blood Pressure 106/72 O2 Sat by Pulse 99 Oximetry (%) 11/10/17 11/10/17 07:38 09:34 Temperature 98.0 F 98.2 F Pulse Rate 66 76 Respiratory 18 20 Rate Blood Pressure 119/68 108/63 O2 Sat by Pulse Oximetry (%) Allergies/Adverse Reactions: Allergies Allergy/AdvReac Type Severity Reaction Status Date / Time naproxen [From Naprosyn] Allergy Mild Nausea Verified 11/08/17 16:42 Date of last physical exam: 12/09/17 Concur with the findings of this exam: Yes - Substance Abuse/Tx History Hx Alcohol Use: Yes (drinking since 15 yo,beer,rum 1 pint daily) Hx Substance Use: Yes (crack/cocaine since 20 yo,heroin since this year) Substance Use Type: Alcohol, Cocaine, Heroin Hx Substance Use Treatment: Yes (this is her first inpatient rehabilitation) Mental Status Exam - Mental Status Exam Alert and Oriented to: Time, Place, Person Cognitive Function: Grossly Intact Patient Appearance: Unkempt Mood: Sad, Anxious, Irritable Affect: Mood Congruent, Labile Patient Behavior: Cooperative Speech Pattern: Clear Voice Loudness: Normal Thought Process: Goal Oriented Thought Disorder: Not Present Hallucinations: Denies Suicidal Ideation: Denies Homicidal Ideation: Denies Insight/Judgement: Fair Sleep: Fair Appetite: Fair Muscle strength/Tone: Normal Gait/Station: Normal Psychiatric Findings - Problem List ([place] 1, 2,3) (1) Alcohol dependence Current Visit: Yes Status: Chronic Qualifiers: Substance use status: uncomplicated Qualified Code(s): F10.20 - Alcohol dependence, uncomplicated (2) Cocaine dependence Current Visit: Yes Status: Chronic Qualifiers: Substance use status: uncomplicated Qualified Code(s): F14.20 - Cocaine dependence, uncomplicated (3) COPD (chronic obstructive pulmonary disease) Current Visit: Yes Status: Chronic Qualifiers: COPD type: unspecified COPD Qualified Code(s): J44.9 - Chronic obstructive pulmonary disease, unspecified (4) Substance-induced anxiety disorder Current Visit: Yes Status: Chronic (5) Bipolar II disorder Current Visit: Yes Status: Chronic - Initial Treatment Plan Initial Treatment Plan: Risperidone 1 mg po bid,add Elavil 25 mg po tid, Neurontin 100 mg po tid.Will monitor progress.
[2017-11-10] MEDS: FLUTICASONE PROP 0.05% 16 GM NASAL SPRAY NS SCH (10:09)
[2017-11-10] MEDS: risperiDONE 1 MG TABLET (FP) PO SCH ×2 (11:09→21:14)
[2017-11-10] MEDS: AMITRIPTYLINE HCL 25 MG TABLET (FP) PO SCH ×2 (14:03→21:14)
[2017-11-10] MEDS: GABAPENTIN 100 MG CAPSULE (FP) PO SCH ×2 (14:03→21:14)
[2017-11-10] MEDS: guaiFENesin/D-METHORPHAN HB 10 ML UNIT-DOSE CUPS PO PRN (14:05)
[2017-11-10] MEDS: MAG HYDROX/AL HYDROX/SIMETH 30 ML UNIT-DOSE CUP PO PRN (19:22)
--- NOTE | 2017-11-10 20:18 | PN ---
[facility] Progress Note Note: Vital Signs Temperature 98.2 F 11/10/17 09:34 Pulse Rate 76 11/10/17 09:34 Respiratory Rate 20 11/10/17 09:34 Blood Pressure 108/63 11/10/17 09:34 O2 Sat by Pulse Oximetry (%) 99 11/09/17 10:45 chest x-ray reviewed, no acute pathology will continue predisone and Due Neb increase fluids continue to monitor
[2017-11-10] MEDS: THIAMINE HCL 100 MG TABLET (FP) PO SCH (21:14)
[2017-11-10] MEDS: MONTELUKAST NA 10 MG TABLET PO SCH (21:14)
[2017-11-10] MEDS: MELATONIN 5 MG TABLETS PO PRN (21:15)
[2017-11-10] MEDS ORDERED: PT OWN MED DRAWER 7, Y5N ONE (22:23)
[2017-11-11] MEDS: AMITRIPTYLINE HCL 25 MG TABLET (FP) PO SCH ×3 (07:01→21:30)
[2017-11-11] MEDS: GABAPENTIN 100 MG CAPSULE (FP) PO SCH ×3 (07:01→21:30)
[2017-11-11] MEDS ORDERED: PT OWN MED DRAWER 7, Y5N ONE (08:24)
[2017-11-11] MEDS: predniSONE 20 MG TABLET (UD) PO SCH (09:39)
[2017-11-11] MEDS: PRENATAL VITAMINS W/ FOLIC ACID TABLET (FP) PO SCH (09:39)
[2017-11-11] MEDS: risperiDONE 1 MG TABLET (FP) PO SCH ×2 (09:40→21:30)
[2017-11-11] MEDS: FLUTICASONE PROP 0.05% 16 GM NASAL SPRAY NS SCH (09:40)
[2017-11-11] MEDS: NICOTINE 14 MG/24 HOURS TOPICAL PATCH TD SCH (09:40)
[2017-11-11] MEDS: BUDESONIDE/FORMETEROL FUMARATE 160/4.5 mcg INHALER IH SCH ×2 (09:40→21:30)
[2017-11-11] MEDS: hydrOXYzine PAMOATE 50 MG CAPSULE (FP) PO PRN ×2 (09:42→21:30)
[2017-11-11] MEDS ORDERED: COLLOIDAL OATMEAL 1 BAR EACH TP PRN (13:22)
[2017-11-11] MEDS: MONTELUKAST NA 10 MG TABLET PO SCH (21:30)
[2017-11-11] MEDS: THIAMINE HCL 100 MG TABLET (FP) PO SCH (21:30)
[2017-11-11] MEDS: CYCLOBENZAPRINE HCL 5 MG TABLET PO SCH (21:31)
[2017-11-11] MEDS: MELATONIN 5 MG TABLETS PO PRN (21:32)
[2017-11-12] MEDS: CYCLOBENZAPRINE HCL 5 MG TABLET PO SCH ×3 (06:36→21:54)
[2017-11-12] MEDS: GABAPENTIN 100 MG CAPSULE (FP) PO SCH ×2 (06:36→14:01)
[2017-11-12] MEDS: AMITRIPTYLINE HCL 25 MG TABLET (FP) PO SCH ×3 (06:36→21:54)
[2017-11-12] MEDS: NICOTINE 14 MG/24 HOURS TOPICAL PATCH TD SCH (10:30)
[2017-11-12] MEDS: BUDESONIDE/FORMETEROL FUMARATE 160/4.5 mcg INHALER IH SCH ×2 (10:31→21:54)
[2017-11-12] MEDS: risperiDONE 1 MG TABLET (FP) PO SCH ×2 (10:31→21:55)
[2017-11-12] MEDS: predniSONE 20 MG TABLET (UD) PO SCH (10:31)
[2017-11-12] MEDS: PRENATAL VITAMINS W/ FOLIC ACID TABLET (FP) PO SCH (10:31)
[2017-11-12] MEDS: FLUTICASONE PROP 0.05% 16 GM NASAL SPRAY NS SCH (10:31)
--- NOTE | 2017-11-12 16:04 | PN ---
Psychiatric Progress Note Vital Signs: Vital Signs Period Temp Pulse Resp BP Sys/Denis Pulse Ox Last 24 Hr 97.9 F 74-102 16-18 113-118/70-74 Date of Session: 11/12/17 Chief Complaint:: Moy still nervious,having cravings,insomnia. HPI: Patient addressed Alcohol,cocaine dependence comorbid with substance induced mood disorder. ROS: COPD. Current Medications: Active Medications Generic Name Dose Route Start Last Admin Trade Name Freq PRN Reason Stop Dose Admin Acetaminophen 650 mg 11/08/17 18:07 11/09/17 11:14 Tylenol - PO 650 mg Q4H PRN Administration FEVER Al Hydroxide/Mg Hydroxide 30 ml 11/08/17 18:07 11/10/17 19:22 Mylanta Oral Suspension - PO 30 ml Q6H PRN Administration DYSPEPSIA Albuterol Sulfate 2 puff 11/09/17 14:28 Ventolin Hfa Inhaler - IH Q4H PRN WHEEZING Albuterol/Ipratropium 1 amp 11/08/17 18:03 11/10/17 09:17 Duoneb - NEB 1 amp Q4H PRN Administration SHORTNESS OF BREATH Amitriptyline HCl 25 mg 11/10/17 14:00 11/12/17 14:00 Elavil - PO 25 mg TID JEANNETTE Administration Budesonide/Formoterol Fumarate 2 puff 11/08/17 22:00 11/12/17 10:31 Symbicort 160/4.5mcg - IH 2 inh BID JEANNETTE Administration Colloidal Oatmeal 1 applic 11/11/17 13:22 Aveeno Soap - TP DAILY PRN HYGEINE Cyclobenzaprine HCl 5 mg 11/11/17 22:00 11/12/17 14:01 Cyclobenzaprine Hcl PO 5 mg TID JEANNETTE Administration Diphenhydramine HCl 100 mg 11/12/17 22:00 Benadryl - PO HS JEANNETTE Eucalyptus/Menthol/Phenol/Sorbitol 1 each 11/08/17 18:07 Cepastat Lozenge - MM Q4H PRN SORE THROAT Fluticasone Propionate 1 spray 11/09/17 14:45 11/12/17 10:31 Flonase - NS Not Given DAILY JEANNETTE Gabapentin 300 mg 11/12/17 16:00 Neurontin - PO TID JEANNETTE Guaifenesin 10 ml 07/30/18 18:07 11/10/17 14:05 Robitussin Dm - PO 10 ml Q6H PRN Administration COUGH Hydroxyzine Pamoate 50 mg 11/08/17 18:07 11/11/17 21:30 Vistaril - PO 50 mg Q4H PRN Administration AGITATION Loperamide HCl 4 mg 11/08/17 18:07 11/08/17 22:42 Imodium - PO 4 mg Q6H PRN Administration DIARRHEA Magnesium Citrate 300 ml 11/08/17 18:07 Citroma - PO Q48H PRN CONSTIPATION Magnesium Hydroxide 30 ml 11/08/17 18:07 Milk Of Magnesia - PO DAILY PRN CONSTIPATION Melatonin 5 mg 11/08/17 22:00 11/11/17 21:32 Melatonin PO 5 mg HS PRN Administration INSOMNIA Montelukast Sodium 10 mg 11/09/17 22:00 11/11/17 21:30 Singulair - PO 10 mg HS JEANNETTE Administration Nicotine 14 mg 11/09/17 10:00 11/12/17 10:30 Nicoderm Patch - TD 14 mg DAILY JEANNETTE Administration Nicotine Polacrilex 2 mg 11/08/17 18:07 Nicorette Gum - BC Q2H PRN NICOTINE REPLACEMENT RX Multivit/Folic Acid/Iron 1 tab 11/09/17 10:00 11/12/17 10:31 Vitamins (Sjr) - PO 1 tab DAILY JEANNETTE Administration Pseudoephedrine/Triprolidine 1 combo 11/08/17 18:07 Actifed - PO TID PRN NASAL CONGESTION Risperidone 1 mg 11/10/17 10:45 11/12/17 10:31 Risperdal - PO 1 mg BID JEANNETTE Administration Thiamine HCl 100 mg 11/08/17 22:00 11/11/17 21:30 Vitamin B1 - PO 100 mg HS JEANNETTE Administration Current Side Effect: No Lab tests ordered: No Lab tests reviewed: Yes Provider note:: Chart was revuewed,patient was seen in my office to address her ongoing anxiety,sleeping difficulties,cravings.Neurontin 100 mg po tid will be adjusted to 300 mg po tid,add Benadryl 100 mg po hs. Supportive therapy provided focusing on coping skills utilization,stress reducing techniques has been discussed as well. Total face to face time:: 35 Mental Status Exam - Mental Status Exam Alert and Oriented to: Time, Place, Person Cognitive Function: Grossly Intact Patient Appearance: Unkempt Mood: Sad, Anxious, Expansive Affect: Labile Patient Behavior: Restless, Distractible, Cooperative Speech Pattern: Clear Voice Loudness: Normal Thought Process: Goal Oriented Thought Disorder: Not Present Suicidal Ideation: Denies Homicidal Ideation: Denies Insight/Judgement: Fair Sleep: Difficulty falling asleep Appetite: Fair Muscle strength/Tone: Normal Gait/Station: Normal Psychiatric Treatment Plan - Problem List (1) Alcohol dependence Qualifiers: Substance use status: uncomplicated Qualified Code(s): F10.20 - Alcohol dependence, uncomplicated (2) Cocaine dependence Qualifiers: Substance use status: uncomplicated Qualified Code(s): F14.20 - Cocaine dependence, uncomplicated (3) COPD (chronic obstructive pulmonary disease) Qualifiers: COPD type: unspecified COPD Qualified Code(s): J44.9 - Chronic obstructive pulmonary disease, unspecified
[2017-11-12] MEDS: GABAPENTIN 300 MG CAPSULE (FP) PO SCH ×2 (17:10→21:54)
[2017-11-12] MEDS ORDERED: PT OWN MED DRAWER 7, Y5N ONE (19:54)
[2017-11-12] MEDS: MAG HYDROX/AL HYDROX/SIMETH 30 ML UNIT-DOSE CUP PO PRN (20:17)
[2017-11-12] MEDS: THIAMINE HCL 100 MG TABLET (FP) PO SCH (21:54)
[2017-11-12] MEDS: MONTELUKAST NA 10 MG TABLET PO SCH (21:54)
[2017-11-12] MEDS: diphenhydrAMINE HCL 50 MG CAPSULE PO SCH (21:56)
[2017-11-13] MEDS: CYCLOBENZAPRINE HCL 5 MG TABLET PO SCH ×3 (06:42→21:03)
[2017-11-13] MEDS: GABAPENTIN 300 MG CAPSULE (FP) PO SCH ×3 (06:43→21:04)
[2017-11-13] MEDS: AMITRIPTYLINE HCL 25 MG TABLET (FP) PO SCH ×3 (06:43→21:04)
[2017-11-13] MEDS: PRENATAL VITAMINS W/ FOLIC ACID TABLET (FP) PO SCH (10:02)
[2017-11-13] MEDS: risperiDONE 1 MG TABLET (FP) PO SCH ×2 (10:02→21:04)
[2017-11-13] MEDS: FLUTICASONE PROP 0.05% 16 GM NASAL SPRAY NS SCH (10:02)
[2017-11-13] MEDS: BUDESONIDE/FORMETEROL FUMARATE 160/4.5 mcg INHALER IH SCH ×2 (10:02→22:00)
[2017-11-13] MEDS: NICOTINE 14 MG/24 HOURS TOPICAL PATCH TD SCH (10:02)
[2017-11-13] MEDS: MONTELUKAST NA 10 MG TABLET PO SCH (21:03)
[2017-11-13] MEDS: diphenhydrAMINE HCL 50 MG CAPSULE PO SCH (21:03)
[2017-11-13] MEDS: MELATONIN 5 MG TABLETS PO PRN (21:04)
[2017-11-13] MEDS: THIAMINE HCL 100 MG TABLET (FP) PO SCH (21:04)
[2017-11-14] MEDS: AMITRIPTYLINE HCL 25 MG TABLET (FP) PO SCH ×2 (06:08→14:33)
[2017-11-14] MEDS: CYCLOBENZAPRINE HCL 5 MG TABLET PO SCH (06:08)
[2017-11-14] MEDS: GABAPENTIN 300 MG CAPSULE (FP) PO SCH ×2 (06:08→14:33)
[2017-11-14 06:47] VITALS: BP 104/60; PULSE 71; TEMP 98.1
[2017-11-14] MEDS: NICOTINE 14 MG/24 HOURS TOPICAL PATCH TD SCH (09:46)
[2017-11-14] MEDS: PRENATAL VITAMINS W/ FOLIC ACID TABLET (FP) PO SCH (09:46)
[2017-11-14] MEDS: BUDESONIDE/FORMETEROL FUMARATE 160/4.5 mcg INHALER IH SCH (09:47)
[2017-11-14] MEDS: FLUTICASONE PROP 0.05% 16 GM NASAL SPRAY NS SCH (09:47)
[2017-11-14] MEDS: risperiDONE 1 MG TABLET (FP) PO SCH (09:47)
[2017-11-14] MEDS: hydrOXYzine PAMOATE 50 MG CAPSULE (FP) PO PRN (09:48)
[2017-11-14] MEDS ORDERED: CYCLOBENZAPRINE HCL 10 MG TABLET (FP) PO SCH (14:00)
--- NOTE | 2017-11-14 14:44 | PN ---
S Progress Note Note: has nose bleed no complaint,no headache Vital Signs Temperature 98.1 F 11/14/17 06:47 Pulse Rate 71 11/14/17 06:47 Respiratory Rate 18 11/14/17 06:47 Blood Pressure 104/60 11/14/17 06:47 O2 Sat by Pulse Oximetry (%) 99 11/09/17 10:45 now stop treatment ice pack close monitoring
--- NOTE | 2017-11-14 16:04 | PN ---
[facility] Progress Note Note: informed by nurse that patient would like to leave ,for personal issue that she missed her daughter,did not want to wait has nose bleed earlier but no bleeding at this time,no complaint,did not want to wait,signed release otoniel psychiatrist on called notified by nurse all attempts to convince patient to stay by staff with no avail,left the unit in stable condition
== END 2017-11-14 15:50 | disposition left against medical advice (07) | DRG 770 ==
LOC: YASAS 14:15 → Y3E 16:57 → Y3W 11-13 12:19
PROVIDERS: ADMIT Psychiatry & Neurology Psychiatry; ATTEND Psychiatry & Neurology Psychiatry
PROC: HZ42ZZZ Group Counseling for Substance Abuse Treatment, Cognitive-Behavioral (ICD-10-PCS; principal; 2017-11-08)
DX: F10.20 Alcohol dependence, uncomplicated (principal); F14.20 Cocaine dependence, uncomplicated; F17.210 Nicotine dependence, cigarettes, uncomplicated; F31.81 Bipolar II disorder; F19.280 Other psychoactive substance dependence with psychoactive substance-induced anxiety disorder; J44.9 Chronic obstructive pulmonary disease, unspecified; R04.0 Epistaxis; R05 Cough; R06.2 Wheezing; R07.89 Other chest pain; Z91.14 Patient's other noncompliance with medication regimen; Z91.5 Personal history of self-harm; Z59.0 Homelessness
CPT/HCPCS: 71045-TC-FY; 81003; 93005; 93010; 94640; J2794; J7620